=== PATIENT | male | born 1990 | race Caucasian/White ===

== ENCOUNTER 2021-07-15 15:29 | Outpatient (REF) | payer OTHER, SELFPAY | END 2021-07-15 15:30 | disposition home or self-care (01) | LOC: HO.LNP 15:29 | PROVIDERS: Visit Provider Physician Assistant Medical | DX: Z20.822 Contact with and (suspected) exposure to COVID-19 (principal) | CPT/HCPCS: U0003; U0005 ==

== ENCOUNTER 2024-04-24 11:57 | Outpatient (AMB) | payer BC, SELFPAY ==
--- NOTE | 2024-04-24 12:42 | MHC.PC.OV ---
Vital Signs 04/24/24 12:47 Height 5 ft 8 in Weight 165 lb BMI 25.1 BP 120/60 Blood Pressure Location Lt brachial Position Sitting Respiration 10 L Pulse 76 Pulse Source Pulse Oximeter Temp 97.9 F Temp Source Tympanic Pulse Oximetry (%) 98 Oxygen Delivery Method Room Air Intake Visit Reasons: SAFETY COMPANION-PE? Intake Note: CPE Allergies Penicillins [PENICILLINS] Allergy (Unknown, Verified 04/24/24 12:42) UNKNOWN REACTION-FROM CHILDHOOD Medication List - Last Reconciled 04/24/24 by Vincent Barillas MD dextroamphetamine-amphetamine 20 mg ER 1 cap PO DAILY Tobacco use date assessed: 04/24/24 Dental Screening Dental Screen Date: 04/24/24 Did you have a dental visit in the last 12 months?: Yes Did you have a dental problem in the last 6 months where you did not have access to dental care?: No Was dental information given to patient?: Patient has dentist HPI SAFETY COMPANION-PE? HPI Details New Patient? ?? Prior PCP:?Selvin Bailey Last office visit/CPE:? 1 yr Acute issue(s):? Has appt w/ ENT - Dr Solomon. Decreased Smell & tatste - has improved w/ steroid in past. Has appt in [place]. Pt had Nasal polyp & Dev septum. Pt wants referral for vasectomy PMHx:? Decreased smell & Taste. Allergies. ADHD. Provider Dee Arias. SurgHx:? Nasal polyp & Dev septum. Lasik. FHx:? Dad: Clotting problems, COPD, DM, HTN. Carotid stenoses. Mom: HTN. mGM: Breast CA SocHx:? Nonsmoker. EtOH Social 2-3 . No Drugs PFSH Medical History (Updated 04/24/24 @ 13:08 by Denver Pulliam) Allergies Surgical History History of nasal surgery Family History Father No problems noted. Mother No problems noted. 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 1. Little interest or pleasure in doing things: not at all 2. Feeling down, depressed, or hopeless: not at all 3. Trouble falling or staying asleep, or sleeping too much: more than half the days 4. Feeling tired or having little energy: several days 5. Poor appetite or overeating: several days 6. Feeling bad about yourself - or that you are a failure or have let yourself or your family down: several days 7. Trouble concentrating on things, such as reading the newspaper or watching television: several days 8. Moving or speaking so slowly that other people could have noticed. Or the opposite - being so fidgety or restless that you have been moving around a lot more than usual: several days 9. Thoughts that you would be better off or of hurting yourself in some way: not at all Total score: 7 Depression Screening Interpretation: Positive Depression Screening Done: Yes 37977 - PHQ-9 Billing: Yes Source: Developed by Drs. Thom Garza, Tona Mascorro, Miles Ch and colleagues, with an educational jessica from [employer] Thrive Questionnaire Date Thrive assessed: 04/24/24 I am a: Patient What is your living situation today?: I have a steady place to live Within the past 12 months, did the food you bought not last and you didn't have the money to get more?: Never true Within the past 12 months, did you worry whether your food would run out before you got money to buy more?: Never true Do you have trouble paying for medicines?: No Do you have trouble getting transportation to medical appointments?: No Do you have trouble paying your heating and electricity bill?: No Do you have trouble taking care of your child, family member or friend?: No Do you have trouble with day-to-day activities such as bathing, preparing meals, shopping, managing finances, etc.?: No Are you currently unemployed and looking for a job?: No Are you interested in more education?: Yes Please select the resources that you would like help with: None Currently or been in a relationship where the following occur: No concerns reported THRIVE Score: 0 AUDIT C Alcohol Use Questionnaire (AUDIT-C) 1. How often do you have a drink containing alcohol?: 2-3 times a week 2. How many drinks containing alcohol do you have on a typical day when you are drinking?: 5 or 6 3. How often do you have six or more drinks on one occasion?: Never Total Score: 5 ALBARO-7 AMB Questionnaire ALBARO-7 Date ALBARO - 7 assessed: 04/24/24 Feeling nervous, anxious, or on edge: 1 = Several days Not being able to stop or control worryin = Several days Worrying too much about different things: 1 = Several days Trouble relaxin = Several days Being so restless that it is hard to sit still: 1 = Several days Becoming easily annoyed or irritable: 1 = Several days Feeling afraid as if something awful might happen: 0 = Not at all Total ALBARO-7 score (0-4 normal; 5-9 mild; 10-14 moderate; 15-21 severe): 6 Source: Developed by Drs. Thom Garza, Tona Mascorro, Miles Ch and colleagues, with an educational jessica from [employer] ALBARO-7 Assessment Billing ALBARO-7 Assessment Tool: ALBARO-7 Assessment 00659 Review of Systems Const Denies chills, Denies fatigue, Denies fever(s), Denies headache(s) and Denies weakness ENT Denies dizziness and Denies headache(s) Card Denies chest pain, Denies lightheadedness, Denies dyspnea and Denies other (Palpitations) Resp Denies cough, Denies dyspnea, Denies wheezing and Denies other ( shortness of breath) Musc Denies numbness and Denies tingling Neuro Denies dizziness, Denies headache(s), Denies numbness, Denies tingling, Denies paresthesias and Denies weakness Psych Denies anxiety and Denies depression Endo Denies fatigue Aller/Immun Denies wheezing Physical exam (Primary Care) Vital Signs: Last Vital Signs Temp 97.9 F 04/24/24 12:47 Pulse 76 04/24/24 12:47 Resp 10 L 04/24/24 12:47 BP 120/60 04/24/24 12:47 Pulse Ox 98 04/24/24 12:47 Oxygen Delivery Method Room Air 04/24/24 12:47 BMI result Body Mass Index 25.1 Tobacco/Smoking Status: Tobacco use Status Tobacco use date assessed 04/24/24 04/24/24 12:49 Patient Tobacco Use Status Never used Tobacco 04/24/24 12:49 e-Cigarette/Vaping Use Never Used 04/24/24 12:49 PHQ-9: PHQ-9 Score PHQ-9: Total score 7 04/24/24 12:49 Depression Screening Interpretation: Positive Thrive Assessment: Date of Thrive Assessment Date Thrive assessed 04/24/24 04/24/24 12:49 Currently or been in a relationship where the following occur: No concerns reported Const General: no acute distress and well developed Nutritional Appearance: well nourished Orientation/consciousness: patient oriented x3 [facility] Head: Yes normocephalic and Yes atraumatic Eyes General: appearance normal, both eyes and all related structures Pupils: Equal, round and reactive pupils present EOM: EOMs intact bilaterally Resp Effort & Inspection: normal respiratory effort Auscultation: clear to auscultation bilaterally Cardio Rate: regular rate Rhythm: regular rhythm Heart sounds: S1 normal heart sound present, S2 normal heart sound present, no gallops, no murmurs and no rubs Neuro General: patient oriented x3 and gait normal Cranial nerves: Yes Equal, round and reactive pupils present Psych Affect: normal affect Assessment and Plan Assessment & Plan (1) Sense of smell altered: Code(s): R43.9 - Unspecified disturbances of smell and taste Plan: Longstanding?altered?sense?of?taste?and?smell.??History?of?nasal?polyps?and?septal?deviation?with?corrective?surgeries. Followed?by?ENT?and?has?a?new?appointment?with??in?[place] Also?was?recently?given?a?nasal?steroid?and?can?try?this?as?well (2) Taste sense altered: Code(s): R43.2 - [place] Plan: As?above (3) Allergies: Code(s): T78.40XA - Allergy, unspecified, initial encounter Plan: Patient?has?seasonal?allergies?and?this?may?be?an?underlying?cause?of?his?decreased?sense?of?smell?and?taste?as?well. He?can?try?hypoallergenic?bedding?covers Can?try?HEPA?filtration?and?humidified?air Can?try?OTC?antihistamines?and?he?has?recently?started?nasal?steroid (4) Family planning: Code(s): Z30.09 - Encounter for other general counseling and advice on contraception Plan: Patient?would?like?a?referral?to?urology?to?consult?for?vasectomy Refer (5) Nocturnal cough: Code(s): R05.8 - Other specified cough Plan: Patient?notes?that?he?wakes?up?coughing?each?night Possibly?secondary?to?allergies?or?postnasal?drip and?may?improve?with?treatment?by?ENT-see?above However,?may?have?some?GERD?and?we?will?trial?omeprazole.??He?can?discontinue?this?if?not?improving?or?he?has?adverse?effects?to?the?medication (6) Laboratory exam ordered as part of routine general medical examination: Code(s): Z00.00 - Encounter for general adult medical examination without abnormal findings Plan: Check?lab Orders: Orders Lipid Panel Today Z00.00 - Encounter for general adult medical examination without abnormal findings Microalbumin, Random (w Creat) Today I10 - Essential (primary) hypertension TSH reflex Free T4 Today Z00.00 - Encounter for general adult medical examination without abnormal findings UA and rflx microscopic Today Z00.00 - Encounter for general adult medical examination without abnormal findings CT NG by PCR Today Z11.3 - Encounter for screening for infections with a predominantly sexual mode of transmission Hepatitis B,C Profile Today Z11.3 - Encounter for screening for infections with a predominantly sexual mode of transmission Comprehensive [place]. Panel Fast Today Z00.00 - Encounter for general adult medical examination without abnormal findings HIV Ab/Ag Today Z11.3 - Encounter for screening for infections with a predominantly sexual mode of transmission Syphilis Screen Today Z11.3 - Encounter for screening for infections with a predominantly sexual mode of transmission Referrals Urology Referral Z30.09 - Encounter for other general counseling and advice on contraception Medications: New omeprazole 20 mg PO DAILY 30 days 30 caps 2RF Coding Level of Care Code New Pt Level 3 (39700) Diagnoses Sense of smell altered R43.9 Taste sense altered R43.2 Allergies T78.40XA Family planning Z30.09 Nocturnal cough R05.8 Laboratory exam ordered as part of routine general medical examination Z00.00 Additional Codes ALBARO-7 Assessment Billing - ALBARO-7 Assessment Tool: ALBARO-7 Assessment [id number] ([id number])
[2024-04-24 12:47] VITALS: BP 120/60; PULSE 76; RESP 10; TEMP 36.6; O2SAT 98; BMI 25.1
== END 2024-04-24 13:10 | disposition home or self-care (01) ==
PROVIDERS: PCP Physician Assistant; Visit Provider Family Medicine
DX: R43.9 Unspecified disturbances of smell and taste (principal); R43.2 Parageusia; T78.40XA Allergy, unspecified, initial encounter; Z30.09 Encounter for other general counseling and advice on contraception; R05.8 Other specified cough
CPT/HCPCS: 99214

== ENCOUNTER 2024-06-29 11:03 | Outpatient (AMB) | payer BC, SELFPAY ==
--- NOTE | 2024-06-29 11:05 | A.OFFVIS_ITS ---
Intake Visit Reasons: vasectomy consult Intake Note: Patient is present for VASECTOMY CONSULT Urology Medication:NONE Antibiotic Allergy:PENICILLINS Blood Thinner:NONE Vocational Trainer Required: No Allergies Penicillins [PENICILLINS] Allergy (Unknown, Verified 06/29/24 11:06) UNKNOWN REACTION-FROM CHILDHOOD Medication List - Last Reconciled 06/29/24 by Josesito Coats MD dextroamphetamine-amphetamine 20 mg ER 1 cap PO DAILY omeprazole 20 mg PO DAILY 30 days HPI Comments Details: Bakari is a 33 year old male who is here for evaluation for vasectomy. He has 2 children. Vasectomy procedure was discussed at length with the patient. He was informed that vasectomy is a safe, permanent, and effective form of control but there are risks involved. It may involve risk of hematoma, procedure failure which is rare, sperm granuloma which may cause mild pain, and congestion which may cause sense of pressure and generally resolves after several weeks. Also discussed is the reported post vasectomy pain syndrome with chronic testicular pain which is uncommon <5% The patient was advised that it is necessary to use other types of control methods for > 12 weeks and until we send semen for analysis to make sure there is no more sperm in the semen. [facility] Medical History Allergies Surgical History History of nasal surgery Family History Father No problems noted. Mother No problems noted. 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 Current occupational exposures/hazards: Yes Cognitive needs: No Hearing needs: No Vision needs: No Review of Systems Const All systems reviewed & are unremarkable except as noted in HPI and below Reports no additional complaints Eyes Reports no additional complaints ENT Reports no additional complaints Card Reports no additional complaints Resp Reports no additional complaints GI Reports no additional complaints Reports as per HPI Musc Reports no additional complaints Skin/Breast Reports system reviewed and no additional complaints, except as documented Neuro Reports no additional complaints Psych Reports no additional complaints Endo Reports no additional complaints Mason/Lymph Reports no additional complaints Aller/Immun Reports no additional complaints Physical Exam Const General: healthy appearing, no acute distress and well developed Orientation/consciousness: patient oriented x3 HEENT Head: Yes normocephalic and Yes atraumatic Eyes Conjunctivae: conjunctivae normal Neck Neck: Yes normal visual inspection Chest Chest palpation & inspection: normal inspection of the chest Resp Effort & Inspection: normal respiratory effort Cardio Rate: regular rate GI Inspection: Yes normal to inspection Neuro General: patient oriented x3 Extrem General: No pedal edema Psych Appearance: grossly normal Affect: normal affect Results AMB Urinalysis, Automated UA Leukoctes 0 Archana/uL Last Edit by Cari Pretty CCM on 06/29/24 11:22 UA Nitrite Negative Last Edit by Cari Pretty CCM on 06/29/24 11:22 UA Urobilinogen 0.2 mg/dL Last Edit by Cari Pretty [facility] on 06/29/24 11:2 2 UA Protein 30 mg/dL Last Edit by Cari Pretty CCM on 06/29/24 11:22 UA pH 7.5 Last Edit by Cari Pretty [facility] on 06/29/24 11:22 UA Blood 0 Nael/uL Last Edit by Cari Pretty CCM on 06/29/24 11:22 UA Specific [place] 1.010 Last Edit by LAURA Gomez on 06/29/24 11: 22 UA Ketone Negative Last Edit by Cari Pretty CCM on 06/29/24 11:22 UA Bilirubin 0 mg/dL Last Edit by Cari Pretty CCM on 06/29/24 11:22 UA Glucose 0 mg/dL Last Edit by Cari Pretty CCM on 06/29/24 11:22 Results Reviewed Results Reviewed: Laboratory Last Values Urine pH (Auto) 7.5 06/29/24 11:21 Specific [place] (Auto) 1.010 06/29/24 11:21 Urine Protein (Auto) 30 mg/dL 06/29/24 11:21 Glucose (UA)(Auto) 0 mg/dL 06/29/24 11:21 Urine Ketones (Auto) Negative 06/29/24 11:21 Urine Blood (Auto) 0 Nael/uL 06/29/24 11:21 Urine Nitrite (Auto) Negative 06/29/24 11:21 Urine Bilirubin (Auto) 0 mg/dL 06/29/24 11:21 Urine Urobilinogen (Auto) 0.2 mg/dL 06/29/24 11:21 Leukocyte Esterase (Auto) 0 Archana/uL 06/29/24 11:21 Assessment & Plan Assessment & Plan (1) Anxiety about health: Code(s): R45.89 - Other symptoms and signs involving emotional state Category: Medical (2) Encounter for vasectomy counseling: Code(s): Z30.09 - Encounter for other general counseling and advice on contraception Category: Medical Plan Discussed vasectomy Orders: Orders AMB Urinalysis Automated 06/29/24 Z13.9 - Encounter for screening, unspecified Patient Instructions: The patient had an opportunity to ask questions regarding treatment plan. The patient expressed understanding and agreement with the above treatment plan. The patient is aware they should contact our office by phone for worsening of their current condition or the appearance of new symptoms. Compliance is enc ouraged with any medications and followup testing that is ordered. It is a privilege to be allowed the opportunity to participate in the urologic care of your patient. If you have any questions or concerns regarding treatment for the above conditions please do not hesitate to contact me. The office telephone contact is [phone]. This note is constructed in part using voice recognition software. While every effort has been made to ensure accuracy bicycle subassembler errors may have been included. Yours sincerely, Josesito Coats MD Coding Level of Care Code New Pt Level 4 (55184) Diagnoses Anxiety about health R45.89 Encounter for vasectomy counseling Z30.09
== END 2024-06-29 11:55 | disposition home or self-care (01) ==
PROVIDERS: PCP Physician Assistant; Visit Provider Urology
DX: R45.89 Other symptoms and signs involving emotional state (principal); Z30.09 Encounter for other general counseling and advice on contraception
CPT/HCPCS: 99204

== ENCOUNTER → 2024-06-29 11:03 | Outpatient (BNVA) | payer BC, SELFPAY | PROVIDERS: PCP Physician Assistant; Visit Provider Urology | DX: Z30.09 Encounter for other general counseling and advice on contraception (principal); F41.8 Other specified anxiety disorders | CPT/HCPCS: 81003 ==

== ENCOUNTER 2024-12-10 06:44 | Outpatient (REF) | payer BC, SELFPAY ==
[2024-12-10 07:26] LABS: Appearance Urine Clear; Color Urine Yellow; Glucose Urine UA Negative (Negative); Leukocyte Esterase Urine Negative (Negative); Nitrite Urine Negative (Negative); PH 5.5 (5.0-9.0); Specific Gravity - Urine 1.015 (1.005-1.025); Urine Blood Negative (Negative); Urine Ketones Negative (Negative); Urine Protein Negative (Neg-Trace)
[2024-12-10 07:45] LABS: Alanine Aminotransferase 44 U/L (0-40); Albumin Level 4.4 g/dL (3.5-5.0); Alkaline Phosphatase 59 U/L (39-117); Anion Gap 12 (12-20); Aspartate Amino Transferase 27 U/L (5-37); Bilirubin Total 0.2 mg/dL (0.0-1.0); Blood Urea Nitrogen 10 mg/dL (9-16); Calcium 9.6 mg/dL (8.4-10.2); Carbon Dioxide 26 mmol/L (22-29); Chloride 104 mmol/L (96-108); Cholesterol 154 mg/dL (<200); Estimated Glomerular Filt Rate > 60; Glucose Fasting 95 mg/dL (60-99); HDL Cholesterol 42 mg/dL (>40); LDL Cholesterol Calculated 92 mg/dL (<100); Potassium 4.2 mmol/L (3.3-5.1); Sodium 138 mmol/L (135-145); Total Protein 7.2 g/dL (6.5-8.0); Triglycerides 102 mg/dL (<150)
[2024-12-10 08:02] LABS: Syphilis Screen Nonreactive (Nonreactive)
[2024-12-10 08:03] LABS: TSH reflex Free T4 1.55 uIU/mL (0.32-4.0)
[2024-12-10 08:11] LABS: Creatinine Urine 105.18 mg/dL; Microalbumin Urine < 5.0 mg/L
[2024-12-10 08:30] LABS: HBS Num1 25.15 mIU/mL (0-7.99); HBc Num1 0.04 S/CO (0.00-0.79); HIV AB/AG Nonreactive (Nonreactive); HIV Num 1 0.05 S/CO (0.00-0.99); Hepatitis B Core Antibody Nonreactive (Nonreactive); Hepatitis B Surface Antigen Negative (Negative); ~HepC Num1 0.05 S/CO (0.00-0.79); ~Hepatitis B Surface Antibody REACTIVE (Nonreactive); ~Hepatitis C Antibody Nonreactive (Nonreactive)
== END 2024-12-10 06:45 | disposition home or self-care (01) ==
LOC: HO.LAB 06:44
PROVIDERS: PCP Family Medicine; Visit Provider Family Medicine
DX: Z00.00 Encounter for general adult medical examination without abnormal findings (principal); I10 Essential (primary) hypertension
CPT/HCPCS: 36415; 80053; 80061; 81003; 82043; 82570; 84443; 86704; 86706; 86780; 86803; 87340; 87389

== ENCOUNTER 2024-12-15 16:00 | Outpatient (AMB) | payer BC, SELFPAY ==
--- NOTE | 2024-12-15 16:02 | A.OFFPC_ITS ---
Vital Signs 12/15/24 16:09 Height 5 ft 8 in Weight 165 lb 2 oz BMI 25.1 BP 126/62 Blood Pressure Location Rt brachial Position Sitting Respiration 16 Pulse 77 Pulse Source Pulse Oximeter Temp 97.8 F Temp Source Oral Pulse Oximetry (%) 97 Oxygen Delivery Method Room Air Intake Visit Reasons: CPE with f/u labs and health maint Intake Note: patient is scheduled for labs and health maint. follow-up [employer] Kil[employer] Operator Required: No Information Interpreted: clinical only Allergies Penicillins [PENICILLINS] Allergy (Unknown, Verified 12/15/24 16:05) UNKNOWN REACTION-FROM CHILDHOOD Medication List - Last Reconciled 12/15/24 by Vincent Barillas MD dextroamphetamine-amphetamine 20 mg ER 1 cap PO DAILY omeprazole 20 mg PO DAILY 30 days Tobacco use date assessed: 12/15/24 Dental Screening Dental Screen Date: 12/15/24 Did you have a dental visit in the last 12 months?: Yes Did you have a dental problem in the last 6 months where you did not have access to dental care?: No Was dental information given to patient?: Yes HPI CPE with f/u labs and health maint HPI Details 34 y/o male presents for a CPE with f/u labs and health maintenance. Labs drawn 12/10/24. Reviewed labs with pt. Elevated ALT of 44. Triglycerides 102. TC 154. LDL 92. HDL 42. TSH 1.55. Notes some GERD. Has an active lifestyle. [facility] Medical History Allergies Surgical History History of nasal surgery Family History Father No problems noted. Mother No problems noted. 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 1. Little interest or pleasure in doing things: not at all 2. Feeling down, depressed, or hopeless: not at all 3. Trouble falling or staying asleep, or sleeping too much: several days 4. Feeling tired or having little energy: several days 5. Poor appetite or overeating: not at all 6. Feeling bad about yourself - or that you are a failure or have let yourself or your family down: not at all 7. Trouble concentrating on things, such as reading the newspaper or watching television: not at all 8. Moving or speaking so slowly that other people could have noticed. Or the opposite - being so fidgety or restless that you have been moving around a lot more than usual: not at all 9. Thoughts that you would be better off or of hurting yourself in some way: not at all Total score: 2 Depression Screening Interpretation: Negative Depression Screening Done: Yes 01358 - PHQ-9 Billing: Yes Source: Developed by Drs. Thom Garza, Tona Mascroro, Miles Ch and colleagues, with an educational jessica from [employer]. Thrive Questionnaire Date Thrive assessed: 12/15/24 I am a: Patient What is your living situation today?: I have a steady place to live Within the past 12 months, did the food you bought not last and you didn't have the money to get more?: Never true Within the past 12 months, did you worry whether your food would run out before you got money to buy more?: Never true Do you have trouble paying for medicines?: No Do you have trouble getting transportation to medical appointments?: No Do you have trouble paying your heating and electricity bill?: No Do you have trouble taking care of your child, family member or friend?: No Do you have trouble with day-to-day activities such as bathing, preparing meals, shopping, managing finances, etc.?: No Are you currently unemployed and looking for a job?: No Are you interested in more education?: Yes Please select the resources that you would like help with: None Currently or been in a relationship where the following occur: No concerns reported THRIVE Score: 0 AUDIT C Alcohol Use Questionnaire (AUDIT-C) 1. How often do you have a drink containing alcohol?: 2-4 times a month 2. How many drinks containing alcohol do you have on a typical day when you are drinking?: 5 or 6 3. How often do you have six or more drinks on one occasion?: Less than monthly Total Score: 5 ALBARO-7 AMB Questionnaire ALBARO-7 Date ALBARO - 7 assessed: 12/15/24 Feeling nervous, anxious, or on edge: 1 = Several days Not being able to stop or control worryin = Not at all Worrying too much about different things: 0 = Not at all Trouble relaxin = Several days Being so restless that it is hard to sit still: 1 = Several days Becoming easily annoyed or irritable: 0 = Not at all Feeling afraid as if something awful might happen: 0 = Not at all Total ALBARO-7 score (0-4 normal; 5-9 mild; 10-14 moderate; 15-21 severe): 3 Source: Developed by Drs. Thom Garza, Tona Mascorro, Miles Ch and colleagues, with an educational jessica from [employer]. Review of Systems Const Denies chills, Denies fatigue, Denies fever(s), Denies headache(s) and Denies weakness Eyes Denies change in vision ENT Denies dizziness, Denies headache(s), Denies hearing loss, Denies nasal congestion, Denies sinus pain, Denies sinus pressure and Denies sore throat Card Denies chest pain, Denies lightheadedness, Denies dyspnea and Denies other (palpitations) Resp Denies cough, Denies dyspnea and Denies wheezing GI Denies abdominal pain, Denies melena, Denies hematochezia, Denies change in bowel habits, Denies dyspepsia and Denies nausea Denies hematuria and Denies dysuria Musc Denies abnormal gait, Denies myalgias, Denies arthralgias, Denies numbness and Denies tingling Skin/Breast Denies rash, Denies unusual bruising and Denies wounds Neuro Denies abnormal gait, Denies dizziness, Denies headache(s), Denies memory loss, Denies numbness, Denies Sensory deficit (Neuro), Denies tingling and Denies weakness Psych Denies anxiety, Denies depression and Denies memory loss Endo Denies cold intolerance, Denies fatigue, Denies heat intolerance, Denies polydipsia and Denies polyuria Mason/Lymph Denies easy bleeding and Denies easy bruising Aller/Immun Denies wheezing Physical exam (Primary Care) Vital Signs: Last Vital Signs Temp 97.8 F 12/15/24 16:09 Pulse 77 12/15/24 16:09 Resp 16 12/15/24 16:09 BP 126/62 12/15/24 16:09 Pulse Ox 97 12/15/24 16:09 Oxygen Delivery Method Room Air 12/15/24 16:09 BMI result Body Mass Index 25.1 Tobacco/Smoking Status: Tobacco use Status Tobacco use date assessed 12/15/24 12/15/24 16:09 Patient Tobacco Use Status Never used Tobacco 12/15/24 16:09 e-Cigarette/Vaping Use Never Used 12/15/24 16:09 PHQ-9: PHQ-9 Score PHQ-9: Total score 2 12/15/24 16:09 Depression Screening Interpretation: Negative Thrive Assessment: Date of Thrive Assessment Date Thrive assessed 12/15/24 12/15/24 16:09 Currently or been in a relationship where the following occur: No concerns reported Const General: no acute distress, well developed, alert and awake Nutritional Appearance: well nourished Orientation/consciousness: patient oriented x3 HENMT Head: Yes normocephalic and Yes atraumatic Ears: hearing grossly normal bilaterally and TM's normal bilaterally General nose exam: Normal external nose present and Normal nares present Mouth: Normal oral and palatal mucosa present and moist mucous membranes Teeth and gingiva: dentition normal Throat: Yes posterior oropharynx normal Eyes General: appearance normal, both eyes and all related structures Pupils: Equal, round and reactive pupils present and Pupil accommodation reflex normal EOM: EOMs intact bilaterally Neck Neck: Yes normal visual inspection, Yes no lymphadenopathy and Yes trachea midline Thyroid: Thyroid normal Carotids: no bruits Lymphatic: no lymphadenopathy noted Chest Chest palpation & inspection: normal inspection of the chest Resp Effort & Inspection: normal respiratory effort Auscultation: clear to auscultation bilaterally Cardio Rate: regular rate Rhythm: regular rhythm Heart sounds: S1 normal heart sound present, S2 normal heart sound present, no gallops, no murmurs and no rubs Bruits: no abdominal aortic bruits and no carotid bruits GI Palpation (GI): No Abdominal aortic bruit present, Soft to palpation, nontender, No hepatosplenomegaly present and No Rebound tenderness present Auscultation: normal bowel sounds General: Yes no CVA tenderness Back/Spine/Pelvis Back: no CVA tenderness Cervical Spine: cervical ROM normal and No Cervical spine tenderness Thoracic/Lumbar Spine: thoraco-lumbar ROM normal, No pain with thoraco-lumbar ROM, No thoracic spinal tenderness and No lumbar spinal tenderness Skin Lesions: no lesions Rashes: no rashes Trauma: no lacerations or abrasions Wounds: no wounds Nails: normal Neuro General: patient oriented x3 Cranial nerves: Yes Equal, round and reactive pupils present Cognition (Neuro): normal cognition Gait exam (Neuro): Normal gait present Motor exam (neuro): 5/5 motor strength present throughout Sensory Exam: No Sensory deficit (Neuro) Deep tendon reflexes (DTR's): Right patellar reflex intensity grade: 2+ and Left patellar reflex intensity grade: 2+ Extrem General: Yes normal to inspection and No edema Psych Appearance: grossly normal Affect: normal affect Attitude: cooperative Thought process: Normal thought process present Coding Level of Care Code Est Pt Level 3 (27637) Est Pt Prev Care 18-39y(27163) Diagnoses Adult general medical examination Z00.00 GERD (gastroesophageal reflux disease) K21.9 Elevated ALT measurement R74.01 Fatigue R53.83 Additional Codes PHQ-9 - 27080 - PHQ-9 Billing: Yes ([id number]) Assessment & Plan Assessment & Plan (1) Adult general medical examination: Code(s): Z00.00 - Encounter for general adult medical examination without abnormal findings Category: Medical Plan: 34-year-old?male?presents?for?complete?physical?exam Encouraged?healthy?diet?with?active?lifestyle?and?plenty?of?exercise (2) GERD (gastroesophageal reflux disease): Code(s): K21.9 - Gastro-esophageal reflux disease without esophagitis Category: Medical Plan: Ongoing?GERD?symptoms. Had?given?him?a?trial?of?omeprazole?which?helped?while?he?was?using?it. GERD?has?returned. Will?refer?him?to?GI Will?send?a?new?script?for?omeprazole Avoid?trigger?foods (3) Elevated ALT measurement: Code(s): R74.01 - Elevation of levels of liver transaminase levels Category: Medical Plan: Mildly?elevated?ALT Will?recheck?in?about?6?weeks. (4) Fatigue: Code(s): R53.83 - Other fatigue Category: Medical Plan: Patient?notes?some?mild?fatigue. He?mostly?attributes?this?to?allergies?and?he?has?follow-up?with?ENT. However,?patient?would?like?testos terone?level?checked?and?I?have?ordered?these.??He?get?them?done?with?his?rechec k?of?liver?enzymes?mentioned?above. Orders: Orders Testosterone, Free/Total Today R53.83 - Other fatigue Comprehensive Met. Panel Today R74.01 - Elevation of levels of liver transamin ase levels Referrals Gastroenterology Referral K21.9 - Gastro-esophageal reflux disease without esophagitis Medications: Refilled omeprazole 20 mg PO DAILY 30 days 30 caps 2RF
[2024-12-15 16:09] VITALS: BP 126/62; PULSE 77; RESP 16; TEMP 36.6; O2SAT 97; BMI 25.1
--- OUTSIDE RECORDS SUMMARY | 2024-12-15 16:58 | XMS_ITS | Data Portability ---
Author Organization [place] - [facility], Allergy Address [address] [place] [id number] Care Team Providers Care Count Room Clerk Name Role Phone SANAM APPLE Primary Care Provider [phone] Assessment Encounter Date Assessment Date Assessment LastModified by Organization Details LastModified Time 05/13/2024 05/13/2024 33 year with history of nasal polypectomy around 2013, with postoperative fungal meningitis, presents for evaluation, reporting anosmia and loss of taste for past 6 months. Physical exam unrevealing. Nasal endoscopy reveals grade 1 polyp in the left middle meatus. Recommend prednisone taper followed by budesonide in distilled saline irrigant. Will check CBC and IgE as well as [address] sinus will be scheduled in the office and patient will return for consult with Dr. Ortiz to discuss all test results. Not available 05/13/2024 12:20:04 07/06/2024 07/06/2024 Patient presents for reevaluation of nasal polyps. Tolerated the round of prednisone well with some temporary improvement in congestion and hyposmia. Physical exam unrevealing. CT of the sinuses demonstrates severe pansinusitis and polyposis, with septations of the frontal sinuses. Recommend revision sinus surgery. Will schedule for consult with Dr. Ortiz. In the interim, will continue budesonide and fluticasone. Recommend we initiate Dupixent; rationale and risks reviewed and patient is agreeable. We discussed that his E4 urine leukotriene and IgE were normal. His CBC was normal aside from mild elevation of eosinophils. Patient also evaluated by Viridiana Pang PA-C Not available 07/06/2024 16:28:36 10/09/2024 10/09/2024 Endoscopic Sinus surgery brochure Please contact my surgical supply assistant, Joyce, at [phone] to schedule the procedure. The risks and benefits of endoscopic sinus surgery were discussed with the patient, including: bleeding, infection, anosmia (loss of sense of smell), epiphora (tearing), double vision, loss of vision, CSF leak, continued nasal obstruction, brain injury, septal perforation and continued sinus infections. The patient's questions regarding surgery were discussed in detail and their concerns were addressed. The patient provided verbal informed consent and surgery will be scheduled in the near future. [email or web address] Not available 10/09/2024 12:06:32 Plan of Treatment Reminders Order Date Submit Date Provider Last Modified By Organization Details Last Modified Time Details Appointments None recorded. Lab ige, total, serum 2023 APPLE [facility] (Centralized Electronic Ordering - All Locations), Patient Can Go To The Location Of Their Choice, [id number] 13:07:46 CBC w/ auto diff 2023 APPLE [facility] (Centralized Electronic Ordering - All Locations), Patient Can Go To The Location Of Their Choice, [id number] 4 13:07:45 unlisted lab - leukotriene E4, 24 HR, U 2023 APPLE [facility] (Centralized Electronic Ordering - All Locations), Patient Can Go To The Location Of Their Choice, [id number] 4 14:23:21 Referral None recorded. Procedures None recorded. Surgeries endoscopy, nasal/sinus , w/ maxillary antrostomy & tissue removal (SURG) 2024 [email or web address] [id number] Not available 5 12:12:53 nasal/sinus endoscopy, surgical with ethmoidecto my, total, including sphenoidoto my, with removal of tissue from the sphenoid sinus (SURG) 2024 025 [email or web address] 9 Not available 5 12:13:03 stereotacti c computer-as sisted navigation (SURG) 2024 025 [email or web address] 9 Not available 5 12:13:13 endoscopy, nasal and sinus (SURG) 2024 025 [email or web address] 9 Not available 5 12:13:[address], sinuses, w/o contrast 2023 024 [email or web address] [facility], [address] [place] [address], [place], [address], 4 17:04:05 CT, sinuses, w/o contrast 2023 024 [email or web address] Not available 08:41:31 Medication Orders Dupixent 300 mg/2 mL subcutaneou s pen injector 2023 024 [id number], [address], [place], [id number], 4 16:27:08 prednisone 20 mg tablet 2023 024 [email or web address] [facility] #[id number], [address], [place], [id number], 5 11:48:13 budesonide 0.5 mg/2 mL suspension for nebulizatio n 2023 024 [facility] #[id number], [address], [place], [id number], 4 11:01:13 Patient TargetsNo targets recorded. 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 His sense of smell was improved after a course of prednisone and budesonide irrigations. Endoscopy shows grade 2-3 polyps bilaterally including polyps in the cribriform region and posteriorly in the sphenoid recess. We discussed that given his high eosinophil count he is at high risk for recurrence of the polyps. I do think we can improve his nasal breathing and the polyp burden by doing a combination of revision surgery and Dupixent injections with budesonide irrigations postoperatively. We reviewed that his CT scan shows minimal removal of the anterior ethmoid and maxillary antrostomy. There is still a significant number of ethmoid cells present. Risks and benefits of surgery discussed and all questions answered. We did review that the most difficult thing would be keeping his taste and smell present. Hopefully with the Dupixent and the irrigations we can maintain that [email or web address] Not available 10/09/2024 12:04:13 Reason for Referral None Reported. Results Created Date Observation Date Name Description Value Unit Range Abnormal Flag Note LastModifiedBy Organization Detail LastModifiedTime 05/13/2005/14/2024 CBC WITH DIFFE RENTI AL/PL ATELE T WBC 5.8 x10e3 /uL 3.4-10 .8 normal Not Available [facility] ([facility]) [address] [place], [address], 05/16/2024 13:07:44 05/13/2005/14/2024 CBC WITH DIFFE RENTI AL/PL ATELE T RBC 5.06 x10e6 /uL 4.14-5 .80 normal Not Available [facility] ([facility]) [address] [place], [address], 05/16/2024 13:07:44 05/13/2005/14/2024 CBC WITH DIFFE RENTI AL/PL ATELE T hemoglobin 15.1 g/dL 13.0-1 7.7 normal Not Available [facility] ([facility]) [address] [place], [address], 05/16/2024 13:07:44 05/13/2005/14/2024 CBC WITH DIFFE RENTI AL/PL ATELE T hematocrit 45.4 % 37.5-5 1.0 normal Not Available [facility] ([facility]) [address] [place], [address], 05/16/2024 13:07:44 05/13/2005/14/2024 CBC WITH DIFFE RENTI AL/PL ATELE T MCV 90 fL 79-97 normal Not Available [facility] ([facility]) [address] [place], [address], 05/16/2024 13:07:44 05/13/20 24 05/14/2024 CBC WITH DIFFE RENTI AL/PL ATELE T MCH 29.8 pg 26.6-3 3.0 normal Not Available [facility] ([facility]) [address] [place], [address], 05/16/2024 13:07:44 05/13/2005/14/2024 CBC WITH DIFFE RENTI AL/PL ATELE T MCHC 33.3 g/dL 31.5-3 5.7 normal Not Available [facility] ([facility]) [address] [place], [address], 05/16/2024 13:07:44 05/13/20 24 05/14/2024 CBC WITH DIFFE RENTI AL/PL ATELE T RDW 12.6 % 11.6-1 5.4 Not Available [facility] ([facility]) [address] [place], [address], 05/16/2024 13:07:44 05/13/20 24 05/14/2024 CBC WITH DIFFE RENTI AL/PL ATELE T platelets 341 x10e3 /uL 150-45 0 normal Not Available [facility] ([facility]) [address] [place], [address], 05/16/2024 13:07:44 05/13/20 24 05/14/2024 CBC WITH DIFFE RENTI AL/PL ATELE T neutrophils 49 % not estab. normal Not Available [facility] ([facility]) [address] [place], [address], 05/16/2024 13:07:44 05/13/20 24 05/14/2024 CBC WITH DIFFE RENTI AL/PL ATELE T lymphs 34 % not estab. normal Not Available [facility] ([facility]) [address] [facility], [place], [address], 05/16/2024 13:07:44 05/13/20 24 05/14/2024 CBC WITH DIFFE RENTI AL/PL ATELE T monocytes 8 % not estab. normal Not Available [facility] ([facility]) [address] [facility], [place], [address], 05/16/2024 13:07:44 05/13/20 24 05/14/2024 CBC WITH DIFFE RENTI AL/PL ATELE T eos 8 % not estab. normal Not Available [facility] ([facility]) [address] [facility], [place], [address], 05/16/2024 13:07:44 05/13/20 24 05/14/2024 CBC WITH DIFFE RENTI AL/PL ATELE T basos 1 % not estab. normal Not Available [facility] ([facility]) [address] [facility], [place], [address], 05/16/2024 13:07:44 05/13/20 24 05/14/2024 CBC WITH DIFFE RENTI AL/PL ATELE T immature cells COUNTER CHECKER Not Available [facility] ([facility]) [address] [facility], [place], [address], 05/16/2024 13:07:44 05/13/20 24 05/14/2024 CBC WITH DIFFE RENTI AL/PL ATELE T neutrophils (absolute) 2.9 x10e3 /uL 1.4-7. 0 normal Not Available [facility] ([facility]) [address] [place], [address], 05/16/2024 13:07:44 05/13/20 24 05/14/2024 CBC WITH DIFFE RENTI AL/PL ATELE T lymphs (absolute) 2.0 x10e3 /uL 0.7-3. 1 normal Not Available [facility] ([facility]) [address] [facility], [place], [address], 05/16/2024 13:07:44 05/13/20 24 05/14/2024 CBC WITH DIFFE RENTI AL/PL ATELE T monocytes(ab solute) 0.5 x10e3 /uL 0.1-0. 9 normal Not Available [facility] ([facility]) [address] [facility], [place], [address], 05/16/2024 13:07:44 05/13/20 24 05/14/2024 CBC WITH DIFFE RENTI AL/PL ATELE T eos (absolute) 0.5 x10e3 /uL 0.0-0. 4 above high normal Not Available [facility] ([facility]) [address] [facility], [place], [address], 05/16/2024 13:07:44 05/13/20 24 05/14/2024 CBC WITH DIFFE RENTI AL/PL ATELE T baso (absolute) 0.1 x10e3 /uL 0.0-0. 2 normal Not Available [facility] ([facility]) [address] [facility], [place], [address], 05/16/2024 13:07:44 05/13/20 24 05/14/2024 CBC WITH DIFFE RENTI AL/PL ATELE T immature granulocytes 0 % not estab. Not Available [facility] ([facility]) [address] [facility], [place], [address], 05/16/2024 13:07:44 05/13/20 24 05/14/2024 CBC WITH DIFFE RENTI AL/PL ATELE T immature grans (abs) 0.0 x10e3 /uL 0.0-0. 1 Not Available [facility] ([facility]) [address] [facility], [place], [address], 05/16/2024 13:07:44 05/13/20 24 05/14/2024 CBC WITH DIFFE RENTI AL/PL ATELE T NRBC COUNTER CHECKER Not Available [facility] ([facility]) [address] [facility], [place], [address], 05/16/2024 13:07:44 05/13/20 24 05/14/2024 CBC WITH DIFFE RENTI AL/PL ATELE T hematology comments: COUNTER CHECKER Not Available [facility] ([facility]) [address] [facility], [place], [address], 05/16/2024 13:07:44 05/13/20 24 05/16/2024 IMMUN OGLOB ULIN E, TOTAL immunoglobul in E, total 103 IU/mL 6-495 Not Available [facility] ([facility]) [address] [facility], [place], [address], 05/16/2024 13:07:46 05/13/20 24 05/14/[address] PROBL EM request problem TNP Test not perfo rmed. No urine speci men recei susanne. TEST: [id number] 5 Leuko trien e E4, 24 hr, U Not Available [facility] ([facility]) [address] [facility], [place], [address], 05/16/2024 13:07:46 05/21/20 24 05/27/2024 LEUKO TRIEN E E4, 24 HR, U leukotriene E4, U 70 pg/mg _cr <=104 ----- ----- ----- ----A DDITI ONAL INFOR MATIO N---- ----- ----- ----- This test was elis oped and its perfo rmanc e paige cteri stics deter mined by [facility] in a william r consi stent with MIGUEL barnes ts. This test has not been clear ed or appro susanne by the U.S. Food and Drug Admin istra tion. Not Available [facility] [address] , [place], [address], 05/27/2024 14:23:21 05/21/20 24 05/27/2024 LEUKO TRIEN E E4, 24 HR, U creatinine, 24 HR, U 2332 mg/24 _h 930 - 2955 Not Available [facility] [address] [place] [address], [address], 05/27/2024 14:23:21 05/21/2005/27/2024 LEUKO TRIEN E E4, 24 HR, U creatinine concentratio n,24 HR 106 mg/dL Not Available [facility] [address] [place] [address], [address], 05/27/2024 14:23:21 05/21/2005/27/2024 LEUKO TRIEN E E4, 24 HR, U collection duration 24 h Not Available [facility] [address] [place] [address], [address], 05/27/2024 14:23:21 05/21/2005/27/2024 LEUKO TRIEN E E4, 24 HR, U urine volume 2200 mL Not Available [facility] [address] [place], [address], 05/27/2024 14:23:21 07/06/20 CT, sinus es, w/o contr ast No observ ation record ed. [email or web address] [facility] [address], [address], 07/06/2024 17:04:02 07/11/20 24 07/06/2024 CT, sinus es, w/o contr ast No observ ation record ed. [email or web address] [facility] [address], [address], 07/11/2024 21:39:28 Result Notes None recorded. 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 Active 2023 VIRIDIANA PANG, PA-C [address] [facility] [place], [place], [address], [place] - [facility] 4 10:58:37 Chronic sinusitis 31196522 Active 2023 VIRIDIANADenis PANG, PA- [address] [facility] [place], [place], [address], [place] - [facility] 4 10:58:37 Loss of sense of smell 68556641 Active 2023 VIRIDIANA PANG, PA-C [address] [facility] [place], [place], [address], [place] - [facility] 4 12:13:34 Eosinophil count above reference range 398425630 Active 2024 MARIA ESTHER HSU MD [address] [facility], [address] [facility], [place], [address], [place] - [facility] 5 12:04:40 Chronic rhinitis 09523117 Active 2024 MARIA ESTHER HSU MD [address] [facility], [address], [place], [address], [facility] - [facility] 5 12:06:05 Problem Notes None recorded. Procedures Surgical History Date Name Laterality Status Provider Name and Address Organization Details Recorded Time 5 JMSNasal/Sinus Endoscopy-PRIO R surgical cavities completed MARIA ESTHER ORTIZ MD [address] [place] [address],[address], [address], [facility] - [facility] 10/09/2024 12:05:[address] sinus - Xoran completed LORENA ZAMAN MD [address] [place] [address],[place] [address], [place], [address], [place] - [facility] 07/06/2024 17:03:27 Nasal Endoscopy completed VIRIDIANA PANG PA-C [address], [address], [facility] - [facility] 05/13/2024 11:38:11 Imaging Results Imaging Date Name Status LastModified by Organiz ation Details LastModified Time 07/06/2024 CT, sinuses, w/o contrast completed [email or web address] [facility] [address], [address], 07/06/2024 17:04:02 07/06/2024 CT, sinuses, w/o contrast completed delmy [facility] [address], [address], 07/11/2024 21:39:28 Procedure Notes None recorded. Medical Equipment None Reported. Allergies No known drug allergies Medications Name Sig Start Date Stop Date Status Note LastModified by Organization Details LastModified Time prednisone 20 mg tablet Take 3 tablets daily for 3 days, 2 tablets daily for 3 days and 1 tablet daily for 3 days with food 10/09 completed Not Available Not Available Not Available dextroamphe tamine-amph etamine 10 mg tablet TAKE 1 TABLET BY MOUTH TWICE DAILY active Not Available Not Available No t Available dextroamphe tamine-amph etamine ER 20 mg 24hr capsule,ext end release TAKE 1 CAPSULE BY MOUTH DAILY active Not Available Not Available No t Available omeprazole 20 mg capsule,del ayed release TAKE 1 CAPSULE BY MOUTH DAILY active Not Available Not Available No t Available budesonide 0.5 mg/2 mL suspension for nebulizatio n MIX 1 VIAL IN 8 OZ OF DISTILLED WATER WITH A BUFFERED SALINE PACKET. IRRIGATE NOSE TWICE DAILY. USE HALF BOTTLE ON EACH SIDE active Not Available Not Available No t Available mupirocin 2 % topical ointment APPLY TOPICALLY TO THE AFFECTED AREA THREE TIMES DAILY FOR 7 DAYS 07/02 completed Not Available Not Available Not Available Dupixent 300 mg/2 mL subcutaneou s pen injector Use one pen injector every two weeks active Not Available Not Available No t Available Vitals Date Recorded Body height Body mass index (BMI) Body weight Provider Name and Address Organization Details Last Updated DateTime 05/13/2024 172.72 cm 25.1 kg/m2 69994.74 g Milly Mccoy [place] - [facility] 05/13/2024 10:46:03 Date Recorded Body height Body weight Provider Name and Address Organization Details Last Updated DateTime 10/09/2024 172.72 cm 92015.74 g Tammi Clemens [place] - [facility] 10/09/2024 11:48:05 Social History None recorded. Functional Status None recorded. Mental Status None recorded. Family History Nothing Reported. Medical History Condition Response Nasal or Sinus Problems Y Allergies/Hayfever Y Hearing Loss Y GERD/Reflux Y Nasal polyps Y Asthma Y Past Encounters Encounter ID Performer Location Encounter Start Date Encounter Closed Date Diagnosis/Indication Diagnosis SNOMED-CT Code Diagnosis ICD10 Code Diagnosis Note [id number] VIRIDIANA PANG PA-C [facility] [address] [address] 05/13/2024 10:33:38 05/13/2024 11:05:31 Polyp of nasal cavity 735930602 J33.0 Loss of se nse of smell 81380018 R43.0 [id number] LORENA ZAMAN MD [facility] [address] [address] 07/06/2024 14:53:36 07/07/2024 07:14:17 Chronic sinusitis 92442131 J32.9 Polyp of nasal cavity 73 1193925 J33.0 Polypoid s inus degeneration 37295808 J33.1 [id number] MARIA ESTHER OLIVA MD [facility] [address] [address] 10/09/2024 11:40:24 10/09/2024 12:10:26 Polyp of nasal cavity 834676912 J33.0 Eosinophil count above reference range 128407829 D72.10 Health Concerns Section Related Observation LastModified by Organization Detai ls LastModified Time None Recorded Concern Status LastModified by Organization Details LastModified Time None Recorded Advance Directives Directive None Recorded Payers Encounter Date Sequence Insurance Name Policy Number Policy Eli Covered Member ID Eli Member ID Guarantor Name 05/13/2024 1 [place]: [facility] [id number] Bakari V Croake [id number] [employer] 07/06/2024 1 [place] [facility] [id number] Bakari V Croake [id number] Bakari [employer] Croake 10/09/2024 1 [place] [facility] [id number] Bakari V Croake [id number] Bakari V Croake Notes Date Note Type Note Provider Name and Address Organization Details Recorded Time 05/13/2024 text/html 33 year old male presents for evaluation of nose. Reports he has had no smell or taste for past 6 months. Has been a recurrent issue since he can remember. 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 Formerly a patient of Dr. Araya, used to go on oral steroid and it would improve for about a month and then go out again after. Has been on flonase for a week or so at the advice of PCP, seems like it might be working well. Nasality of voice does not change much with steroid therapy. Denies congestion, epistaxis, vision changes, and frequent nose bleeds. Does have epistaxis in the winter with dry air but not year round. History of immunotherapy for about a year, discontinued several years ago. No asthma as an adult, was diagnosed with it as a child. No eczema, no aspirin allergy. Has not noted a worsening on nasal symptoms on NSAIDs. VIRIDIANA PANG PA-C [address] [place] [address], [address], [facility] - [facility] 05/13/2024 12:20:26 07/06/2024 text/html 33 year old male presents for re-evaluation of nose. States the course of prednisone briefly improved his sense of smell but it then went out again. Currently also having bilateral nasal congestion. History of septoplasty, FESS, and polypectomy around [address] 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 Denies vision changes and perennial nose bleeds. Does sometimes have epistaxis in the winter with dry air. History of immunotherapy for about a year, discontinued several years ago. No asthma as an adult, was diagnosed with it as a child. No eczema, no aspirin allergy. Has not noted a worsening on nasal symptoms on NSAIDs. Currently using budesonide in irrigation, fluticasone, and loratadine. LORENA ZAMAN MD [address] [facility],[place] [address], [place], [address], [place] - [facility] 07/06/2024 17:04:20 10/09/2024 text/html Remote hx of ast hma and environmental allergy. Did SCIT for 18 months in his 20's. No recent testingNo asthma issues recentlyNo known issues with ASA or NSAIDsNo congestion with beer/wineFESS/septo with 2013- Dr Dove eosinophil count 8%Smell and taste improved with the oral steroids and budesonideThe bout of fungal meningitis was about a year after surgery and was related to black mold exposure in his parents home. MARIA ESTHER ORTIZ MD [address] [facility] [address], [place], [address], [facility] - [facility] 10/09/2024 12:06:54
== END 2024-12-15 16:35 | disposition home or self-care (01) ==
LOC: HO.HMCFM 16:00
PROVIDERS: PCP Physician Assistant; Visit Provider Family Medicine
DX: Z00.00 Encounter for general adult medical examination without abnormal findings (principal); K21.9 Gastro-esophageal reflux disease without esophagitis; R74.01 Elevation of levels of liver transaminase levels; R53.83 Other fatigue

== ENCOUNTER → 2024-12-15 16:00 | Outpatient (BNVA) | payer BC, SELFPAY | PROVIDERS: PCP Physician Assistant; Visit Provider Family Medicine | DX: Z00.00 Encounter for general adult medical examination without abnormal findings (principal); K21.9 Gastro-esophageal reflux disease without esophagitis; R74.01 Elevation of levels of liver transaminase levels; R53.83 Other fatigue | CPT/HCPCS: 96127 ==

== ENCOUNTER 2025-02-11 06:06 | Outpatient (REF) | payer BC, SELFPAY ==
--- OUTSIDE RECORDS SUMMARY | 2025-02-11 06:08 | XMS_ITS | Data Portability ---
Author Organization [place] [facility], Allergy Address [address] [place] [id number] Care Team Providers [employer] Name Role Phone SANAM APPLE Primary Care Provider Assessment Encounter Date Assessment Date Assessment LastModified [...] Sinus surgery brochure Please contact my surgical coder, Joyce, at [phone] to schedule the procedure. The risks and [...] will be scheduled in the near future. [email or web address] Not available 10/09/2024 12:06:32 Plan of Treatment Reminders Order Date Submit Date Provider Last Modified By Organization Details Last Modified Time Details Appointments None recorded. Lab ige, total, serum 2023 APPLE [facility] (Centralized Electronic Ordering - All Locations), Patient Can Go To The Location Of Their Choice, [address] 13:07:46 CBC w/ auto diff 2023 APPLE [facility] (Centralized Electronic Ordering - All Locations), Patient Can Go To The Location Of Their Choice, [address] 13:07:45 unlisted lab - leukotriene E4, 24 HR, U 2023 APPLE [facility] (Centralized Electronic Ordering - All Locations), Patient Can Go To The Location Of Their Choice, [address] 14:23:21 Referral None recorded. Procedures None recorded. Surgeries endoscopy, nasal/sinus , w/ maxillary antrostomy & tissue removal (SURG) 2024 025 [email or web address] 9 Not available 12:12:53 nasal/sinus endoscopy, surgical with ethmoidecto my, total, including sphenoidoto my, with removal of tissue from the sphenoid sinus (SURG) 2024 025 [email or web address] 9 Not available 5 12:13:03 stereotacti c computer-as sisted navigation (SURG) 2024 025 [email or web address] 9 Not available 5 12:13:13 endoscopy, nasal and sinus (SURG) 2024 025 9 Not available 5 12:13:[address], sinuses, w/o contrast 2023 024 [email or web address] [facility], [address] [place] [address], [address], 4 17:04:05 CT, sinuses, w/o contrast 2023 024 [email or web address] Not available 08:41:31 Medication Orders Dupixent 300 mg/2 mL subcutaneou s pen injector 2023 024 [facility]00369, [address], [place], [phone], 4 16:27:08 prednisone 20 mg tablet 2023 024 [email or web address] [facility] #00906, [address], [place], [phone], 5 11:48:13 budesonide 0.5 mg/2 mL suspension for nebulizatio n 2023 024 [facility] #[id number], [address], [place], [phone], 4 11:01:13 Patient TargetsNo targets recorded. 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 Results Created Date Observation Date Name Description Value Unit Range Abnormal Flag Note LastModifiedBy Organization Detail LastModifiedTime 05/13/2005/14/2024 CBC WITH DIFFE RENTI AL/PL ATELE T WBC 5.8 x10e3 /uL 3.4-10 .8 normal Not Available [facility] ([facility]) [address] [place], [address], 05/16/2024 13:07:44 05/13/2005/14/2024 CBC WITH DIFFE RENTI AL/PL ATELE T RBC 5.06 x10e6 /uL 4.14-5 .80 normal Not Available [facility] ([facility]) [address] [place], [address], 05/16/2024 13:07:44 05/13/20 24 05/14/2024 CBC WITH DIFFE RENTI AL/PL ATELE T hemoglobin 15.1 g/dL 13.0-1 7.7 normal Not Available [facility] ([facility]) [address] [place], [address], 05/16/2024 13:07:44 05/13/2005/14/2024 CBC WITH DIFFE RENTI AL/PL ATELE T hematocrit 45.4 % 37.5-5 1.0 normal Not Available [facility] ([facility]) [address] [place], [address], 05/16/2024 13:07:44 05/13/2005/14/2024 CBC WITH DIFFE RENTI AL/PL ATELE T MCV 90 fL 79-97 normal Not Available [facility] ([facility]) [address] [place], [address], 05/16/2024 13:07:44 05/13/20 24 05/14/2024 CBC WITH DIFFE RENTI AL/PL ATELE T MCH 29.8 pg 26.6-3 3.0 normal Not Available [facility] ([facility]) [address] [place], [address], 05/16/2024 13:07:44 05/13/2005/14/2024 CBC WITH DIFFE RENTI AL/PL ATELE T MCHC 33.3 g/dL 31.5-3 5.7 normal Not Available [facility] ([facility]) [address] [place], [address], 05/16/2024 13:07:44 05/13/20 24 05/14/2024 CBC WITH DIFFE RENTI AL/PL ATELE T RDW 12.6 % 11.6-1 5.4 Not Available [facility] ([facility]) [address] [place], [address], 05/16/2024 13:07:44 05/13/20 24 05/14/2024 CBC WITH DIFFE RENTI AL/PL ATELE T platelets 341 x10e3 /uL 150-45 0 normal Not Available [facility] ([facility]) [address] [place], [address], 05/16/2024 13:07:44 05/13/20 24 05/14/2024 CBC WITH DIFFE RENTI AL/PL ATELE T neutrophils 49 % not estab. normal Not Available [facility] ([facility]) [address] [place], [address], 05/16/2024 13:07:44 05/13/20 24 05/14/2024 CBC WITH DIFFE RENTI AL/PL ATELE T lymphs 34 % not estab. normal Not Available [facility] ([facility]) [address] [facility], [place], [address], 05/16/2024 13:07:44 05/13/20 24 05/14/2024 CBC WITH DIFFE RENTI AL/PL ATELE T monocytes 8 % not estab. normal Not Available [facility] ([facility]) [address] [facility], [place], [address], 05/16/2024 13:07:44 05/13/20 24 05/14/2024 CBC WITH DIFFE RENTI AL/PL ATELE T eos 8 % not estab. normal Not Available [facility] ([facility]) [address] [facility], [place], [address], 05/16/2024 13:07:44 05/13/20 24 05/14/2024 CBC WITH DIFFE RENTI AL/PL ATELE T basos 1 % not estab. normal Not Available [facility] ([facility]) [address] [facility], [place], [address], 05/16/2024 13:07:44 05/13/20 24 05/14/2024 CBC WITH DIFFE RENTI AL/PL ATELE T immature cells CHIEF CLIENT OFFICER Not Available [facility] ([facility]) [address] [facility], [place], [address], 05/16/2024 13:07:44 05/13/20 24 05/14/2024 CBC WITH DIFFE RENTI AL/PL ATELE T neutrophils (absolute) 2.9 x10e3 /uL 1.4-7. 0 normal Not Available [facility] ([facility]) [address] [place], [address], 05/16/2024 13:07:44 05/13/20 24 05/14/2024 CBC WITH DIFFE RENTI AL/PL ATELE T lymphs (absolute) 2.0 x10e3 /uL 0.7-3. 1 normal Not Available [facility] ([facility]) [address] [facility], [place], [address], 05/16/2024 13:07:44 05/13/20 24 05/14/2024 CBC WITH DIFFE RENTI AL/PL ATELE T monocytes(ab solute) 0.5 x10e3 /uL 0.1-0. 9 normal Not Available [facility] ([facility]) [address] [facility], [place], [address], 05/16/2024 13:07:44 05/13/20 24 05/14/2024 CBC WITH DIFFE RENTI AL/PL ATELE T eos (absolute) 0.5 x10e3 /uL 0.0-0. 4 above high normal Not Available [facility] ([facility]) [address] [facility], [place], [address], 05/16/2024 13:07:44 05/13/20 24 05/14/2024 CBC WITH DIFFE RENTI AL/PL ATELE T baso (absolute) 0.1 x10e3 /uL 0.0-0. 2 normal Not Available [facility] ([facility]) [address] [facility], [place], [address], 05/16/2024 13:07:44 05/13/20 24 05/14/2024 CBC WITH DIFFE RENTI AL/PL ATELE T immature granulocytes 0 % not estab. Not Available [facility] ([facility]) [address] [place], [address], 05/16/2024 13:07:44 05/13/20 24 05/14/2024 CBC WITH DIFFE RENTI AL/PL ATELE T immature grans (abs) 0.0 x10e3 /uL 0.0-0. 1 Not Available [facility] ([facility]) [address] [facility], [place], [address], 05/16/2024 13:07:44 05/13/20 24 05/14/2024 CBC WITH DIFFE RENTI AL/PL ATELE T NRBC CHIEF CLIENT OFFICER Not Available [facility] ([facility]) [address] [facility], [place], [address], 05/16/2024 13:07:44 05/13/20 24 05/14/2024 CBC WITH DIFFE RENTI AL/PL ATELE T hematology comments: CHIEF CLIENT OFFICER Not Available [facility] ([facility]) [address] [facility], [place], [address], 05/16/2024 13:07:44 05/13/20 24 05/16/2024 IMMUN OGLOB ULIN E, TOTAL immunoglobul in E, total 103 IU/mL 6-495 Not Available [facility] ([facility]) [address] [facility], [place], [address], 05/16/2024 13:07:46 05/13/2005/14/[address] PROBL EM request problem TNP Test not perfo rmed. No urine speci men recei susanne. TEST: [id number] 5 Leuko trien e E4, 24 hr, U Not Available [facility] ([facility]) [address] [facility], [place], [address], 05/16/2024 13:07:46 05/21/20 24 05/27/2024 LEUKO TRIEN E E4, 24 HR, U leukotriene E4, U 70 pg/mg _cr <=104 ----- ----- ----- ----A DDITI ONAL INFOR MATCARTER N---- ----- ----- ----- This test was elis mercedes and its perfo rmanc e paige winri stics deter mined by [facility] in a william r consi stent with MIGUEL barnes ts. This test has not been clear ed or appro susanne by the U.S. Food and Drug Admin istra tion. Not Available [facility] - Lab [address] [facility], [place], [address], 05/27/2024 14:23:21 05/21/20 24 05/27/2024 LEUKO TRIEN E E4, 24 HR, U creatinine, 24 HR, U 2332 mg/24 _h 930 - 2955 Not Available [facility] - [facility] [place], [address], 05/27/2024 14:23:21 05/21/2005/27/2024 LEUKO TRIEN E E4, 24 HR, U creatinine concentratio n,24 HR 106 mg/dL Not Available [facility] - Lab [address] [place] [address], [place], [address], 05/27/2024 14:23:21 05/21/2005/27/2024 LEUKO TRIEN E E4, 24 HR, U collection duration 24 h Not Available [facility] - Lab [address] [place] [address], [address], 05/27/2024 14:23:21 05/21/2005/27/2024 LEUKO TRIEN E E4, 24 HR, U urine volume 2200 mL Not Available [facility] Lab [address] [place] [address], [address], 05/27/2024 14:23:21 07/06/20 CT, sinus es, w/o contr ast No observ ation record ed. [email or web address] [facility] Of [address], [address], 07/06/2024 17:04:02 07/11/20 24 07/06/2024 CT, sinus es, w/o contr ast No observ ation record ed. [email or web address] [facility] Of [address], [address], 07/11/2024 21:39:28 Result Notes None recorded. 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 VIRIDIANA PANG, PA-C [address] [facility], [place], [address], [place] - [facility] [place] 4 10:58:37 Chronic sinusitis 21527219 Active 2023 VIRIDIANA PANG, PA-C [address] [facility], [place], [address], [place] - [facility] [place] 4 10:58:37 Loss of sense of smell 09310279 Active 2023 VIRIDIANA PANG, PA-C [address] [facility], [place], [address], [place] - [facility] [place] 4 12:13:34 Eosinophil count above reference range 349801901 Active 2024 MARIA ESTHER HSU MD [address] [facility], [address] [facility], [place], [address], [facility] - [facility] [place] 5 12:04:40 Chronic rhinitis 82781810 Active 2024 MARIA ESTHER HSU MD [address] [facility], [address] [facility], [place], [address], [facility] - [facility] [place] 5 12:06:05 Problem Notes None recorded. Procedures Surgical History Date Name Laterality Status Provider Name and Address Organization Details Recorded Time 5 JMSNasal/Sinus Endoscopy-PRIO R surgical cavities completed MARIA ESTHER ORTIZ MD [address] [facility],[place] [address], [place], [address], [place] - [facility] [place] 10/09/2024 12:05:[address] sinus - Xoran completed LORENA ZAMAN MD [address] [facility],[address], [address], [place] - [facility] 07/06/2024 17:03:27 Nasal Endoscopy completed VIRIDIANA PANG PA-C [address] [place] [address], [address], [facility] - [facility] 05/13/2024 11:38:11 Imaging Results None recorded. Procedure Notes None recorded. Medical Equipment None [...] Available Vitals Date Recorded Body height Body weight Provider Name and Address Organization Details Last Updated DateTime 10/09/2024 172.72 cm 21128.74 g Tammi Clemens [place] [facility] 10/09/2024 11:48:05 Date Recorded Body height Body mass index (BMI) Body weight Provider Name and Address Organization Details Last Updated DateTime 05/13/2024 172.72 cm 25.1 kg/m2 49695.74 g Milly Mccoy [place] [facility] 05/13/2024 10:46:03 Social History None recorded. Functional Status None recorded. Mental Status None recorded. Family History Nothing Reported. Medical History Condition Response Allergies/Hayfever Y Nasal or Sinus Problems Y Hearing Loss Y GERD/Reflux Y Nasal polyps Y Asthma Y Past Encounters Encounter ID Performer Location Encounter Start Date Encounter Closed Date Diagnosis/Indication Diagnosis SNOMED-CT Code Diagnosis ICD10 Code Diagnosis Note [id number] VIRIDIANA PANG PA-C [facility] [address] [address] 05/13/2024 10:33:38 05/13/2024 11:05:31 Polyp of nasal cavity 061330171 J33.0 Loss of se nse of smell 24319423 R43.0 [id number] LORENA ZAMAN MD [facility] [address] [address] 07/06/2024 14:53:36 07/07/2024 07:14:17 Chronic sinusitis 47980216 J32.9 Polyp of nasal cavity 73 1238884 J33.0 Polypoid s inus degeneration 31118220 J33.1 [id number] MARIA ESTHER OLIVA MD [facility] [address] [address] 10/09/2024 11:40:24 10/09/2024 12:10:26 Polyp of nasal cavity 394366840 J33.0 Eosinophil count above reference range 154194940 D72.10 Health Concerns Section Related Observation LastModified by Organization Detai ls LastModified Time None Recorded Concern Status LastModified by Organization Details LastModified Time None Recorded Advance Directives Directive None Recorded Payers Insurance Date Sequence Insurance Name Policy Number Policy Eli Covered Member ID Eli Member ID Guarantor Name 10/09/2024 1 [place] [facility] [id number] Bakari Hinds [id number] Bakari Hinds Notes Date Note Type Note Provider Name [...] nasal symptoms on NSAIDs. VIRIDIANA PANG PA-C [address] [facility],[address], [address], [facility] - [facility] 05/13/2024 12:20:26 07/06/2024 text/html 33 year [...] fluticasone, and loratadine. LORENA ZAMAN MD [address] [facility],[place] [address], [place], [address], [facility] - [facility] 07/06/2024 17:04:20 10/09/2024 text/html Remote hx [...] his parents home. MARIA ESTHER ORTIZ MD [address] [place] [address], [place], [address], [facility] - [facility] 10/09/2024 12:06:54
[2025-02-11 08:16] LABS: Alanine Aminotransferase 23 U/L (0-40); Albumin Level 4.7 g/dL (3.5-5.0); Alkaline Phosphatase 49 U/L (39-117); Anion Gap 11 (12-20); Aspartate Amino Transferase 22 U/L (5-37); Blood Urea Nitrogen 12 mg/dL (9-16); Calcium 9.2 mg/dL (8.4-10.2); Carbon Dioxide 26 mmol/L (22-29); Chloride 105 mmol/L (96-108); Estimated Glomerular Filt Rate > 60; Potassium 4.0 mmol/L (3.3-5.1); Sodium 138 mmol/L (135-145); Total Protein 6.9 g/dL (6.5-8.0)
[2025-02-16 13:28] LABS: Testosterone, Free 73.9 pg/mL (35.0-155.0)
== END 2025-02-11 06:07 | disposition home or self-care (01) ==
LOC: HO.LAB 06:06
PROVIDERS: PCP Family Medicine; Visit Provider Family Medicine
DX: R74.01 Elevation of levels of liver transaminase levels (principal); R53.83 Other fatigue
CPT/HCPCS: 36415; 80053; 84402; 84403

== ENCOUNTER 2025-02-16 09:41 | Outpatient (AMB) | payer BC, SELFPAY ==
--- NOTE | 2025-02-16 10:12 | MHC.PC.OV ---
Vital Signs 02/16/25 10:14 Height 5 ft 8 in Weight 167 lb 2 oz BMI 25.4 BP 98/60 Blood Pressure Location Rt brachial Position Sitting Respiration 16 Pulse 72 Pulse Source Pulse Oximeter Temp 98.6 F Temp Source Temporal Artery Scan Pulse Oximetry (%) 96 Oxygen Delivery Method Room Air Intake Visit Reasons: f/u liver enzymes, labs Intake Note: John presents in the office today for a follow up to his labs. Allergies Penicillins (PENICILLINS) Allergy (Unknown, Verified 02/16/25 10:13) UNKNOWN REACTION-FROM CHILDHOOD Tobacco use date assessed: 02/16/25 Dental Screening Dental Screen Date: 02/16/25 Did you have a dental visit in the last 12 months?: Yes Did you have a dental problem in the last 6 months where you did not have access to dental care?: No Was dental information given to patient?: Patient has dentist HPI f/u liver enzymes, labs HPI Details 34 y/o male presents to f/u liver enzymes, labs. Liver enzymes improved. Had been having complaints of fatigue. Testosterone levels are fine. Notes omeprazole 20mg has been helping for his GERD. HPI Comments History of Present Illness Details Documentation assistance for Vincent Barillas MD, was provided by Denver Pulliam,? [employer] on 02/16/2025 at 10:58 AM EST. I, Dr. Barillas, have read, observed, and verified documentation. ?? [facility] Medical History Allergies Surgical History History of nasal surgery Family History (Updated 02/16/25 @ 10:14 by Zoe Yang MA) Father No problems noted. Mother No problems noted. 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 Current occupational exposures/hazards: Yes Cognitive needs: No Hearing needs: No Vision needs: No Questionnaire Thrive Questionnaire Date Thrive assessed: 12/15/24 I am a: Patient What is your living situation today?: I have a steady place to live Within the past 12 months, did the food you bought not last and you didn't have the money to get more?: Never true Within the past 12 months, did you worry whether your food would run out before you got money to buy more?: Never true Do you have trouble paying for medicines?: No Do you have trouble getting transportation to medical appointments?: No Do you have trouble paying your heating and electricity bill?: No Do you have trouble taking care of your child, family member or friend?: No Do you have trouble with day-to-day activities such as bathing, preparing meals, shopping, managing finances, etc.?: No Are you currently unemployed and looking for a job?: No Are you interested in more education?: Yes Please select the resources that you would like help with: None Currently or been in a relationship where the following occur: No concerns reported THRIVE Score: 0 ALBARO-7 AMB Questionnaire ALBARO-7 Date ALBARO - 7 assessed: 12/15/24 Source: Developed by Drs. Thom Garza, Tona Mascorro, Miles Ch and colleagues, with an educational jessica from [email or web address]. Review of Systems Const Denies chills, Denies fatigue, Denies fever(s), Denies headache(s) and Denies weakness ENT Denies dizziness and Denies headache(s) Card Denies dyspnea Resp Denies cough, Denies dyspnea, Denies wheezing and Denies other (shortness of breath) Musc Denies numbness and Denies tingling Neuro Denies dizziness, Denies headache(s), Denies numbness, Denies tingling and Denies weakness Psych Denies anxiety and Denies depression Endo Denies fatigue Aller/Immun Denies wheezing Physical exam (Primary Care) Vital Signs: Last Vital Signs Temp 98.6 F 02/16/25 10:14 Pulse 72 02/16/25 10:14 Resp 16 02/16/25 10:14 BP 98/60 02/16/25 10:14 Pulse Ox 96 02/16/25 10:14 Oxygen Delivery Method Room Air 02/16/25 10:14 BMI result Body Mass Index 25.4 Tobacco/Smoking Status: Tobacco use Status Tobacco use date assessed 02/16/25 02/16/25 10:16 Patient Tobacco Use Status Never used Tobacco 02/16/25 10:16 e-Cigarette/Vaping Use Never Used 02/16/25 10:16 Thrive Assessment: Date of Thrive Assessment Date Thrive assessed 12/15/24 02/16/25 10:16 Currently or been in a relationship where the following occur: No concerns reported Const General: well developed; No acute distress Nutritional Appearance: well nourished Orientation/consciousness: patient oriented x3 HENMT Head: Yes normocephalic and Yes atraumatic Eyes General: appearance normal, both eyes and all related structures Pupils: Equal, round and reactive pupils present EOM: EOMs intact bilaterally Resp Effort & Inspection: normal respiratory effort Neuro General: patient oriented x3 and gait normal Cranial nerves: Yes Equal, round and reactive pupils present Psych Affect: normal affect Coding Level of Care Code Est Pt Level 4 (72206) Diagnoses Elevated ALT measurement R74.01 Fatigue R53.83 GERD (gastroesophageal reflux disease) K21.9 Assessment & Plan Assessment & Plan (1) Elevated ALT measurement: Code(s): R74.01 - Elevation of levels of liver transaminase levels Category: Medical Plan: Liver enzymes back in normal range Will monitor periodically (2) Fatigue: Code(s): R53.83 - Other fatigue Category: Medical Plan: As discussed at prior visit, patient suspects that this is most likely due to allergies but he requested testosterone levels. These are currently pending Will alert patient if they are abnormal and we can discuss referral. (3) GERD (gastroesophageal reflux disease): Code(s): K21.9 - Gastro-esophageal reflux disease without esophagitis Category: Medical Plan: Improved with omeprazole. Patient is trying to figure out what his trigger foods are and avoid these. Recommended a symptom diary Had made referral to GI. Will hold off on pursuing this at this time. He will let me know if symptoms are worsening or is unable to determine trigger foods.
[2025-02-16 10:14] VITALS: BP 98/60; PULSE 72; RESP 16; TEMP 37; O2SAT 96; BMI 25.4
--- OUTSIDE RECORDS SUMMARY | 2025-02-16 10:14 | XMS_ITS | Data Portability ---
Author Organization [place] - [facility], Allergy Address [address] [place] [phone] Care Team Providers Care Electronics Utility Worker Name Role Phone SANAM APPLE Primary Care Provider [phone] Assessment Encounter Date Assessment Date Assessment LastModified [...] Endoscopic Sinus surgery brochure Please contact my blacksmith apprentice, Joyce, at [phone] to schedule the procedure. The risks and [...] Go To The Location Of Their Choice, [id number] 13:07:46 CBC w/ auto diff 2023 APPLE [facility] (Centralized Electronic Ordering - All Locations), Patient Can Go To The Location Of Their Choice, [id number] 13:07:45 unlisted lab - leukotriene E4, 24 HR, U 2023 APPLE [facility] (Centralized Electronic Ordering - All Locations), Patient Can Go To The Location Of Their Choice, [address] 14:23:21 Referral None recorded. Procedures None recorded. Surgeries endoscopy, nasal/sinus , w/ maxillary antrostomy & tissue removal (SURG) 2024 025 [email or web address] 9 Not available 12:12:53 nasal/sinus endoscopy, surgical with ethmoidecto my, total, including sphenoidoto my, with removal of tissue from the sphenoid sinus (SURG) 2024 025 9 Not available 5 12:13:03 stereotacti c computer-as sisted navigation (SURG) 2024 025 [email or web address] 9 Not available 5 12:13:13 endoscopy, nasal and sinus (SURG) 2024 025 [email or web address] 9 Not available 5 12:13:[address], sinuses, w/o contrast 2023 024 [email or web address] [facility], [address] [place] [address], [address], 4 17:04:05 CT, sinuses, w/o contrast 2023 024 [email or web address] Not available 08:41:31 Medication Orders Dupixent 300 mg/2 mL subcutaneou s pen injector 2023 024 [facility][id number], [address] [place], [place], [id number], 4 16:27:08 prednisone 20 mg tablet 2023 024 [email or web address] [facility] #[id number], [address] [place], [place], [id number], 5 11:48:13 budesonide 0.5 mg/2 mL suspension for nebulizatio n 2023 024 [facility] #[id number], [address], [place], [id number], 4 11:01:13 Patient TargetsNo targets recorded. 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 seen for an opinion regarding recurrent nasal [...] /uL 3.4-10 .8 normal Not Available [facility] ([facility]) [address] [place], [address], 05/16/2024 13:07:44 05/13/2005/14/2024 CBC WITH DIFFE RENTI AL/PL ATELE T RBC 5.06 x10e6 /uL 4.14-5 .80 normal Not Available [facility] ([facility]) [address] [place], [address], 05/16/2024 13:07:44 05/13/20 24 05/14/2024 CBC WITH DIFFE RENTI AL/PL ATELE T hemoglobin 15.1 g/dL 13.0-1 7.7 normal Not Available [facility] ([facility]) [address] [place], [address], 05/16/2024 13:07:44 05/13/2005/14/2024 CBC WITH DIFFE RENTI AL/PL ATELE T hematocrit 45.4 % 37.5-5 1.0 normal Not Available [facility] ([facility]) [address] [place], [address], 05/16/2024 13:07:44 05/13/2005/14/2024 CBC WITH DIFFE RENTI AL/PL ATELE T MCV 90 fL 79-97 normal Not Available [facility] ([facility]) [address] [place], [address], 05/16/2024 13:07:44 05/13/20 24 05/14/2024 CBC WITH DIFFE RENTI AL/PL ATELE T MCH 29.8 pg 26.6-3 3.0 normal Not Available [facility] ([facility]) [address] [place], [address], 05/16/2024 13:07:44 05/13/2005/14/2024 CBC WITH DIFFE RENTI AL/PL ATELE T MCHC 33.3 g/dL 31.5-3 5.7 normal Not Available [facility] ([facility]) [address] [place], [address], 05/16/2024 13:07:44 05/13/20 24 05/14/2024 CBC WITH DIFFE RENTI AL/PL ATELE T RDW 12.6 % 11.6-1 5.4 Not Available [facility] ([facility]) [address] [place], [address], 05/16/2024 13:07:44 05/13/20 24 05/14/2024 CBC WITH DIFFE RENTI AL/PL ATELE T platelets 341 x10e3 /uL 150-45 0 normal Not Available [facility] ([facility]) [address] [place], [address], 05/16/2024 13:07:44 05/13/20 24 05/14/2024 CBC WITH DIFFE RENTI AL/PL ATELE T neutrophils 49 % not estab. normal Not Available [facility] ([facility]) [address] [place], [address], 05/16/2024 13:07:44 05/13/20 24 05/14/2024 CBC WITH DIFFE RENTI AL/PL ATELE T lymphs 34 % not estab. normal Not Available [facility] ([facility]) [address] [facility], [place], [address], 05/16/2024 13:07:44 05/13/20 24 05/14/2024 CBC WITH DIFFE RENTI AL/PL ATELE T monocytes 8 % not estab. normal Not Available [facility] ([facility]) [address] [facility], [place], [address], 05/16/2024 13:07:44 05/13/20 24 05/14/2024 CBC WITH DIFFE RENTI AL/PL ATELE T eos 8 % not estab. normal Not Available [facility] ([facility]) [address] [facility], [place], [address], 05/16/2024 13:07:44 05/13/20 24 05/14/2024 CBC WITH DIFFE RENTI AL/PL ATELE T basos 1 % not estab. normal Not Available [facility] ([facility]) [address] [facility], [place], [address], 05/16/2024 13:07:44 05/13/20 24 05/14/2024 CBC WITH DIFFE RENTI AL/PL ATELE T immature cells RESEARCH RECRUITER Not Available [facility] ([facility]) [address] [facility], [place], [address], 05/16/2024 13:07:44 05/13/20 24 05/14/2024 CBC WITH DIFFE RENTI AL/PL ATELE T neutrophils (absolute) 2.9 x10e3 /uL 1.4-7. 0 normal Not Available [facility] ([facility]) [address] [place], [address], 05/16/2024 13:07:44 05/13/20 24 05/14/2024 CBC WITH DIFFE RENTI AL/PL ATELE T lymphs (absolute) 2.0 x10e3 /uL 0.7-3. 1 normal Not Available [facility] ([facility]) [address] [facility], [place], [address], 05/16/2024 13:07:44 05/13/20 24 05/14/2024 CBC WITH DIFFE RENTI AL/PL ATELE T monocytes(ab solute) 0.5 x10e3 /uL 0.1-0. 9 normal Not Available [facility] ([facility]) [address] [facility], [place], [address], 05/16/2024 13:07:44 05/13/20 24 05/14/2024 CBC WITH DIFFE RENTI AL/PL ATELE T eos (absolute) 0.5 x10e3 /uL 0.0-0. 4 above high normal Not Available [facility] ([facility]) [address] [facility], [place], [address], 05/16/2024 13:07:44 05/13/20 24 05/14/2024 CBC WITH DIFFE RENTI AL/PL ATELE T baso (absolute) 0.1 x10e3 /uL 0.0-0. 2 normal Not Available [facility] ([facility]) [address] [facility], [place], [address], 05/16/2024 13:07:44 05/13/20 24 05/14/2024 CBC WITH DIFFE RENTI AL/PL ATELE T immature granulocytes 0 % not estab. Not Available [facility] ([facility]) [address] [place], [address], 05/16/2024 13:07:44 05/13/20 24 05/14/2024 CBC WITH DIFFE RENTI AL/PL ATELE T immature grans (abs) 0.0 x10e3 /uL 0.0-0. 1 Not Available [facility] ([facility]) [address] [facility], [place], [address], 05/16/2024 13:07:44 05/13/20 24 05/14/2024 CBC WITH DIFFE RENTI AL/PL ATELE T NRBC RESEARCH RECRUITER Not Available [facility] ([facility]) [address] [facility], [place], [address], 05/16/2024 13:07:44 05/13/20 24 05/14/2024 CBC WITH DIFFE RENTI AL/PL ATELE T hematology comments: RESEARCH RECRUITER Not Available [facility] ([facility]) [address] [facility], [place], [address], 05/16/2024 13:07:44 05/13/20 24 05/16/2024 IMMUN OGLOB ULIN E, TOTAL immunoglobul in E, total 103 IU/mL 6-495 Not Available [facility] ([facility]) [address] [facility], [place], [address], 05/16/2024 13:07:46 05/13/2005/14/[address] PROBL EM request problem TNP Test not perfo rmed. No urine speci men recei susanne. TEST: [id number] Leuko trien e E4, 24 hr, U Not Available [facility] ([facility]) [address] [facility], [place], [address], 05/16/2024 13:07:46 05/21/20 24 05/27/2024 LEUKO TRIEN E E4, 24 HR, U leukotriene E4, U 70 pg/mg _cr <=104 ----- ----- ----- ----A DDITI ONAL INFOR MATCARTER N---- ----- ----- ----- This test was elis mercedes and its perfo rmanc e paige winri stics deter mined by [facility] in a william r consi stent with MIGUEL barnes ts. This test has not been clear ed or appro susanne by the U.S. Food and Drug Admin istra tion. Not Available [facility] [address] [facility], [place], [address], 05/27/2024 14:23:21 05/21/20 24 05/27/2024 LEUKO TRIEN E E4, 24 HR, U creatinine, 24 HR, U 2332 mg/24 _h 930 - 2955 Not Available [facility] [place], [address], 05/27/2024 14:23:21 05/21/2005/27/2024 LEUKO TRIEN E E4, 24 HR, U creatinine concentratio n,24 HR 106 mg/dL Not Available [facility] [address] [place] [address], [place], [address], 05/27/2024 14:23:21 05/21/2005/27/2024 LEUKO TRIEN E E4, 24 HR, U collection duration 24 h Not Available [facility] [address] [place] [address], [address], 05/27/2024 14:23:21 05/21/2005/27/2024 LEUKO TRIEN E E4, 24 HR, U urine volume 2200 mL Not Available [facility] [address] [place] [address], [address], 05/27/2024 14:23:21 07/06/20 CT, sinus es, w/o contr ast No observ ation record ed. [email or web address] [facility] Of [address], [address], 07/06/2024 17:04:02 07/11/20 24 07/06/2024 CT, sinus es, w/o contr ast No observ ation record ed. [email or web address] Of [address], [address], 07/11/2024 21:39:28 Result Notes None recorded. 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 VIRIDIANA PANG, PA-C [address] [facility] [address], [place], [address], [place] - [facility] [place] 4 10:58:37 Chronic sinusitis 59105841 Active 2023 VIRIDIANA PANG, PA-C [address] [facility] [address], [place], [address], [place] - [facility] [place] 4 10:58:37 Loss of sense of smell 27254387 Active 2023 VIRIDIANA PANG, PA-C [address] [facility] [address], [place], [address], [place] - [facility] [place] 4 12:13:34 Eosinophil count above reference range 643250560 Active 2024 MARIA ESTHER HSU MD [address] [facility], [address] [facility], [place], [address], [facility] - [facility] [place] 5 12:04:40 Chronic rhinitis 08286736 Active 2024 MARIA ESTHER HSU MD [address] [facility], [address] [facility], [place], [address], [facility] - [facility] [place] 5 12:06:05 Problem Notes None recorded. Procedures Surgical History Date Name Laterality Status Provider Name and Address Organization Details Recorded Time 5 JMSNasal/Sinus Endoscopy-PRIO R surgical cavities completed MARIA ESTHER ORTIZ MD [address] [facility],[place] [address], [place], [address], [place] - [facility] 10/09/2024 12:05:[address] sinus - Xoran completed LORENA ZAMAN MD [address] [facility],[address], [address], [place] - [facility] 07/06/2024 17:03:27 Nasal Endoscopy completed VIRIDIANA PANG PA-C [address] [place] [address], [address], [facility] - [facility] 05/13/2024 11:38:11 Imaging Results None recorded. Procedure [...] Details Last Updated DateTime 10/09/2024 172.72 cm 34004.74 g Tammi Clemens [place] - [facility] 10/09/2024 11:48:05 Date Recorded Body height Body mass index (BMI) Body weight Provider Name and Address Organization Details Last Updated DateTime 05/13/2024 172.72 cm 25.1 kg/m2 09845.74 g Milly Mccoy [place] - [facility] 05/13/2024 10:46:03 Social History None recorded. Functional Status None recorded. Mental Status None recorded. Family History Nothing Reported. Medical History Condition Response Nasal or Sinus Problems Y Allergies/Hayfever Y Hearing Loss Y Nasal polyps Y Asthma Y GERD/Reflux Y Past Encounters Encounter ID Performer Location Encounter Start Date Encounter Closed Date Diagnosis/Indication Diagnosis SNOMED-CT Code Diagnosis ICD10 Code Diagnosis Note [id number] VIRIDIANA PANG PA-C [facility] [address] [address] 05/13/2024 10:33:38 05/13/2024 11:05:31 Polyp of nasal cavity 769255168 J33.0 Loss of se nse of smell 38059507 R43.0 [id number] LORENA ZAMAN MD [facility] [address] [address] 07/06/2024 14:53:36 07/07/2024 07:14:17 Chronic sinusitis 16992385 J32.9 Polyp of nasal cavity 73 8532999 J33.0 Polypoid s inus degeneration 03149546 J33.1 [id number] MARIA ESTHER OLIVA MD [facility] [address] [address] 10/09/2024 11:40:24 10/09/2024 12:10:26 Polyp of nasal cavity 482001255 J33.0 Eosinophil count above reference range 260626569 D72.10 Health Concerns Section Related Observation LastModified by Organization Detai ls LastModified Time None Recorded Concern Status LastModified by Organization Details LastModified Time None Recorded Advance Directives Directive None Recorded Payers Insurance Date Sequence Insurance Name Policy Number Policy Eli Covered Member ID Eli Member ID Guarantor Name 10/09/2024 1 [place]: [facility] [id number] Bakari Hinds [id number] Bakari Hinds Notes Date Note Type [...] symptoms on NSAIDs. VIRIDIANA PANG PA-C [address] [facility],[address], [address], [facility] - [facility] 05/13/2024 12:20:26 07/06/2024 text/html 33 year old [...] fluticasone, and loratadine. LORENA ZAMAN MD [address] [facility],[place] [address], [place], [address], [facility] - [facility] 07/06/2024 17:04:20 10/09/2024 text/html Remote hx of [...] his parents home. MARIA ESTHER ORTIZ MD [address] [place] [address], [place], [address], [facility] - [facility] 10/09/2024 12:06:54
== END 2025-02-16 11:00 | disposition home or self-care (01) ==
LOC: HO.HMCFM 09:42
PROVIDERS: PCP Family Medicine; Visit Provider Family Medicine
DX: R74.01 Elevation of levels of liver transaminase levels (principal); R53.83 Other fatigue; K21.9 Gastro-esophageal reflux disease without esophagitis